=== PATIENT | male | born 1980 | race African-American/Black ===

== ENCOUNTER 2023-01-08 10:23 | Emergency (ER) | payer OTHER ==
[2023-01-08] MEDS ORDERED: Prochlorperazine 10 MG/2 ML VIAL ONE (12:22)
[2023-01-08] MEDS ORDERED: Ketorolac Tromethamine 30 MG/ML VIAL ONE (12:22)
[2023-01-08 13:44] LABS: SARS-CoV-2 NAA Rapid Test Not Detected (NotDetected)
== END 2023-01-08 14:00 | disposition home or self-care (01) ==
LOC: CSHERS 10:23
DX: G43.909 Migraine, unspecified, not intractable, without status migrainosus (principal); R19.7 Diarrhea, unspecified; I10 Essential (primary) hypertension; F17.210 Nicotine dependence, cigarettes, uncomplicated
CPT/HCPCS: 96374; 96375; J0780; J1885